=== PATIENT | male | born 1980 | race Caucasian/White ===

== ENCOUNTER 2020-08-13 05:23 | Emergency (ER) | payer SELFPAY ==
[~2020-08-13] VITALS: Ht 177.8 cm; Wt 79.5 kg
[2020-08-13 05:28] VITALS: BP 129/88; Ht 177.8 cm; Wt 79.5 kg
== END 2020-08-13 06:15 | disposition home or self-care (01) ==
LOC: D.ER 05:23
DX: L72.0 Epidermal cyst (principal)